=== PATIENT | male | born 2000 | race Caucasian/White ===

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

== ENCOUNTER 2024-04-28 04:52 | Emergency (ER) | payer OTHER, SELFPAY ==
[2024-04-28 04:55] VITALS: BP 138/87; PULSE 70; RESP 19; TEMP 36.6; O2SAT 99; BMI 36.3
[2024-04-28 05:20] VITALS: BP 134/80; PULSE 60; RESP 17; TEMP 36.6; O2SAT 98
[2024-04-28] MEDS: Ketorolac Tromethamine 60 MG/2 ML VIAL IM (07:21)
--- NOTE | 2024-04-28 07:24 | PC.NURSE ---
moderate swelling noted at sting site right forearm. pt reports using otc's to no effect [employer]. no airway involvement.
--- NOTE | 2024-04-28 07:37 | ED_ITS ---
HPI - General Adult General Chief complaint: Extremity Problem Stated complaint: bee sting Time Seen by Provider: 04/28/24 06:31 Source: patient Mode of arrival: ambulatory Limitations: no limitations History of Present Illness HPI narrative: Patient is a 24-year-old male presents emergency department with his mother for evaluation of right forearm pain. He reports yesterday at approximately 12:00 he was stung by a bee. He developed immediate pain followed by redness and swelling. He took Benadryl and applied a topical hydrocortisone cream with only minimal improvement. He states as the day progressed the area became increasingly more red and swollen. He reports that a friend had removed the stinger for him. He feels as though the pain is intolerable at this point, took Tylenol without much improvement. Denies history of significant reactions to bee stings in the past, no swelling of the lips, difficulty breathing, throat closing sensation, chest pain, shortness of breath. Related Data Previous Rx's ?Medication ?Instructions ?Recorded cephalexin 500 mg capsule 500 mg PO TID #21 caps 04/28/24 triamcinolone acetonide 0.5 % 1 appl topical BID #15 grams 04/28/24 topical cream Allergies Allergy/AdvReac Type Severity Reaction Status Date / Time No Known Allergies Allergy Verified 04/28/24 04:57 Review of Systems Review of Systems: Yes all other systems are reviewed and are negative [facility] Past Medical History Attestation statement: The following information was validated with the patient. Source: old records reviewed Social History Social History Advance Directives: No Advance Directives Information Provided: No Do you have a plan to hurt others: No Plan Physical Exam ED Vital Signs: Vital Signs - 24 hr 04/28/24 04:55 04/28/24 05:20 Temperature 97.8 F 97.8 F Pulse Rate 70 60 Respiratory Rate 19 17 Blood Pressure 138/87 134/80 Pulse Oximetry 99 98 Oxygen Delivery Method Room Air Room Air BMI result Body Mass Index 36.3 Appearance: Alert.?Oriented to person, place and time. No acute distress.?Normal affect. Eyes: Pupils equal, round and reactive to light.? ENT: Pharynx normal.?? Neck: Normal inspection.? Neck supple.?? CVS: Heart sounds normal. Normal heart rate and rhythm.? Pulses normal.?? Respiratory: No respiratory distress.? Lung sounds clear to auscultation bilaterally?? Skin: Skin warm and dry.? Normal skin color.? Right anterior forearm distally with a punctate jus consistent with identified bee sting location, with large local reaction, erythema and warmth localized swelling of the entire anterior di stal forearm. 2+ radial pulse bilaterally. Tenderness and warmth upon palpation. No lymphatic streaking proximally. Extremities: No lower extremity edema.? Neuro: Moves all extremities spontaneously. Sensation intact bilaterally. Ambulates with normal steady gait. Medications Administered Discontinued Medications Generic Name Dose Route Start Last Admin Trade Name Talon PRN Reason Stop Dose Admin Ketorolac Tromethamine 60 mg 04/28/24 07:07 04/28/24 07:21 Ketorolac Tromethamine 60 Mg/2 Ml Vial IM 04/28/24 07:08 60 mg ONCE ONE Administration Medical Decision Making Medical Decision Making MDM Narrative: Patient is a 24-year-old male who presents emergency department for evaluation after a bee sting with swelling and pain. On evaluation he has a large local reaction, no signs of angioedema. We discussed conservative treatment including will compresses, elevation of the arm. He received ketorolac injection in the emergency department with improvement in pain. Advised to take acetaminophen/ibuprofen at home, he was additionally prescribed a triamcinolone cream that he may apply to this area. Given the degree of erythema, mother expressed concern for a skin infection. He has no lymphatic streaking, fevers, she expresses concern about his ability to see his primary care doctor in the near future as it always takes a long time for an appointment, will send a course of cephalexin to the pharmacy. Discussed worrisome signs and symptoms that would warrant re-evaluation in the emergency department. All questions answered. Stable for discharge Differential Diagnosis Differential Diagnoses: The differential diagnosis associated with the presentation includes (See narrative above) Independent Historian Clinical information obtained from an independent historian. History obtained from or confirmed by: Parent Prescription Management I considered prescription management with: Pain Medication and Antibiotic Discharge Plan Discharge Clinical Impression: Bee sting reaction Patient Disposition: Home, Self-Care Instructions: Insect Bite or Sting (ED) Additional Instructions: Apply cool compresses to the area daily for 10-15 minutes Elevate the arm above the level of your chest. You can take ibuprofen 200 mg, 3 tablets (600mg) every 6-8 hours as needed for pain, in addition to Tylenol 500 mg, 2 tablets (1,000mg) every 4-6 hours as needed for pain, but not to exceed 3 doses daily (3,000mg).? Apply topical triamcinolone saline as needed. Complete course of antibiotics. Follow-up with your primary care doctor Prescriptions: New cephalexin 500 mg capsule 500 mg PO TID Qty: 21 0RF triamcinolone acetonide 0.5 % cream 1 appl topical BID Qty: 15 0RF Referrals: Physician,Unknown J [Primary Care Provider] - Print Language: Guyanese
[2024-04-28 08:26] VITALS: BP 122/63; PULSE 61; RESP 17; TEMP 36.6; O2SAT 97
[2024-04-28 08:37] VITALS: BP 122/63; PULSE 61; RESP 17; TEMP 36.6; O2SAT 97
== END 2024-04-28 08:37 | disposition home or self-care (01) ==
PROVIDERS: Emergency Provider Emergency Medicine
DX: M79.631 Pain in right forearm (principal); T63.441A Toxic effect of venom of bees, accidental (unintentional), initial encounter; Y92.89 Other specified places as the place of occurrence of the external cause
CPT/HCPCS: 96372; 99284; J1885